=== PATIENT | female | born 1980 | race Caucasian/White ===

== ENCOUNTER 2017-05-17 12:27 | Inpatient (IN) | payer OTHER ==
[2017-05-17 12:57] VITALS: BMI 29.8
--- NOTE | 2017-05-17 13:47 | HP ---
COWS - Scale Resting Pulse: 1= [place] 81-100 Sweatin= Chills/Flushing Restless Observation: 1= Difficult to Sit Still Pupil Size: 0= Normal to Room Light Bone or Joint Aches: 2= Severe Diffuse Aches Runny Nose/ Eye Tearin= None GI Upset > 30mins: 2= Nausea/Diarrhea Tremor Observation: 2= Slight Tremor Visible Yawning Observation: 1= 1-2x During Session Anxiety or Irritability: 2=Irritable/Anxious Goose Flesh Skin: 3=Piloerection COWS Score: 15 CIWA Score - CIWA Score Nausea/Vomitin Muscle Tremors: 3 Anxiety: 4-Mod. Anxious/Guarded Agitation: 1-Slight > Activity Paroxysmal Sweats: 3 Orientation: 0-Oriented Tacttile Disturbances: 2-Mild Itch/Numbness/Burn Auditory Disturbances: 0-None Visual Disturbances: 0-None Headache: 4-Moderately Severe CIWA-Ar Total Score: 22 Admission ROS BHS - HPI Chief Complaint: "I do not want to live like this anymore." Pt. is here to Detox from Heroin and Xanax (non-prescribed). Allergies/Adverse Reactions: Allergies Allergy/AdvReac Type Severity Reaction Status Date / Time No Known Allergies Allergy Verified 05/17/17 13:30 History of Present Illness: Pt. is here to Detox from Heroin and Xanax (non-prescribed). Pt. has had 1 previous Detox admission at [facility] in [facility]. Pt. had 1 Detox Arms [facility] in 2010. Longest period of non-drug use: 1 - 1.5 years (2014 - 2015). Exam Limitations: No Limitations - Ebola screening Have you traveled outside of the country in the last 21 days: No Have you had contact with anyone from an Ebola affected area: No Have you been sick,other than usual withdrawal symptoms: No Do you have a fever: No - Review of Systems Constitutional: Chills, Diaphoresis, Fever, Loss of Appetite, Malaise, Night Sweats, Changes in sleep, Other (Gained approx. 25 lbs. over the last 3 months.) EENT: reports: Blurred Vision, Tearing Respiratory: reports: No Symptoms reported Cardiac: reports: Chest Tightness (Intermittent, brief in duration, X approx. 1 month, slightly to the left of sternum, "tight" quality. Patient denies radiation of pain, including down arm. PATIENT DENIES CURRENT CHEST PAIN.) GI: reports: Constipated, Nausea, Poor Appetite, Vomiting, Abdominal cramping : reports: No Symptoms Reported Musculoskeletal: reports: Back Pain, Joint Pain, Joint Stiffness Integumentary: reports: No Symptoms Reported Neuro: reports: Headache, Numbness (Occasional down left leg (history of Sciatica).), Tingling, Tremors Endocrine: reports: No Symptoms Reported Hematology: reports: Anemia (Iron-Deficiency type.), Easy Bruising Psychiatric: reports: Judgement Intact, Mood/Affect Appropiate, Orientated x3, Anxious, Depressed (Treatment, Medication in past, not current.) Other Systems: Reviewed and Negative Patient History - Patient Medical History Hx Anemia: Yes (Iron-deficiency type; no current treatment.) Hx Asthma: Yes (childhood asthma; later resolved.) Hx Chronic Obstructive Pulmonary Disease (COPD): No Hx Cancer: No Hx Cardiac Disorders: No Hx Congestive Heart Failure: No Hx Hypertension: No Hx Hypercholesterolemia: No Hx Pacemaker: No HX Cerebrovascular Accident: No Hx Seizures: No Hx Dementia: No Hx Diabetes: No Hx Gastrointestinal Disorders: No Hx Liver Disease: No Hx Genitourinary Disorders: No Hx Sexually Transmitted Disorders: No Hx Renal Disease (ESRD): No Hx Thyroid Disease: No Hx Human Immunodeficiency Virus (HIV): No (Last Tested: approx. 1 year ago: NEGATIVE.) Hx Hepatitis C: No (Last Tested: approx. 1 year ago: NEGATIVE.) Hx Depression: Yes (Treatment, medication in past; not current.) Hx Suicide Attempt: No (PATIENT DENIES CURRENT SI / HI.) Hx Bipolar Disorder: No Hx Schizophrenia: No Other Medical History: SCIATICA, Left Side, Diagnosed @ 2007. - Patient Surgical History Past Surgical History: Yes Hx Neurologic Surgery: No Hx Cataract Extraction: No Hx Cardiac Surgery: No Hx Lung Surgery: No Hx Breast Surgery: No Hx Breast Biopsy: No Hx Abdominal Surgery: No Hx Appendectomy: No Hx Cholecystectomy: No Hx Genitourinary Surgery: No Hx Section: Yes (x 3 (2002, 2004, 2006).) Hx Orthopedic Surgery: No Hx Hysterectomy: No Anesthesia Reaction: Yes (To Epidurals given during C-Sections (elevated BP).) - PPD History Previous Implant?: Yes Documented Results: Negative w/o proof Implanted On Prior [facility] Admission?: No Date: 01/13/12 PPD to be Administered?: Yes - Reproductive History Patient is a Female of Child Bearing Age (11 -55 yrs old): Yes Last Menstrual Period: 05/03/17 Patient : No - Smoking Cessation Smoking history: Current every day smoker Have you smoked in the past 12 months: Yes Aproximately how many cigarettes per day: 10 Cigars Per Day: 0 Hx Chewing Tobacco Use: No Initiated information on smoking cessation: Yes 'Breaking Loose' booklet given: 05/17/17 (GIVEN ON UNIT.) - Substance & Tx. History Hx Alcohol Use: No Hx Substance Use: Yes Substance Use Type: Heroin, Tranquilizers Hx Substance Use Treatment: Yes (Previous admissions at [facility] and at [facility].) - Substances Abused Heroin Route: Injection Frequency: Daily Amount used: 20 BAGS Age of first use: 31 Date of Last Use: 05/17/17 Alprazolam (Xanax) Route: Oral Frequency: Daily Amount used: 4 MG Age of first use: 36 Date of Last Use: 05/16/17 Marijuana/Hashish Route: Smoking Frequency: 1-2 times per week Amount used: 1 JOINT Age of first use: 14 Date of Last Use: 05/14/17 Family Disease History - Family Disease History Family Disease History: [place]: Grandparent (, Lung.), Mother (Multiple Drug use; Cervical Cancer, Full Hysterectomy.), Other: Father (, Heroin Overdose.), Mother Admission Physical Exam [facility] - Vital Signs Vital Signs: Vital Signs - 24 hr 05/17/17 12:52 Temperature 97.8 F Pulse Rate 81 Respiratory 20 Rate Blood Pressure 109/91 - Physical General Appearance: Yes: Nourished, Appropriately Dressed, Moderate Distress, Tremorous, Anxious HEENTM: Yes: Hearing grossly Normal, Normocephalic, Normal Voice, SANTINO, Pharynx Normal Respiratory: Yes: Chest Non-Tender, Lungs Clear, No Respiratory Distress, No Accessory Muscle Use Neck: Yes: No masses,lesions,Nodules, Supple, Trachea in good position Breast: Yes: Breast Exam Deferred Cardiology: Yes: Regular Rhythm, Regular Rate, S1, S2 Abdominal: Yes: Normal Bowel Sounds, Non Tender, Flat, Soft Genitourinary: Yes: Within Normal Limits Back: Yes: Decreased Range of Motion Musculoskeletal: Yes: Gait Steady, Back pain, Joint Stiffness Extremities: Yes: Tremors Neurological: Yes: Fully Oriented, Alert, Normal Mood/Affect, Normal Response Integumentary: Yes: Normal Color, Dry, Warm, Track Morris (Noted on Dorsum of Right hand and wrist. No signs of infection noted.) Lymphatic: Yes: Within Normal Limits - Diagnostic (1) Opioid dependence with withdrawal Current Visit: Yes Status: Acute (2) Sedative, hypnotic or anxiolytic dependence with withdrawal, uncomplicated Current Visit: Yes Status: Acute (3) Cannabis dependence, uncomplicated Current Visit: Yes Status: Acute (4) Nicotine dependence Current Visit: Yes Status: Chronic Qualifiers: Nicotine product type: cigarettes Substance use status: uncomplicated Qualified Code(s): F17.210 - Nicotine dependence, cigarettes, uncomplicated (5) Sciatica, left side Current Visit: Yes Status: Chronic (6) Anxiety and depression Current Visit: Yes Status: Chronic (7) History of anemia Current Visit: Yes Status: Chronic (8) History of 3 sections Current Visit: Yes Status: Chronic Cleared for Admission [facility] - Detox or Rehab [facility] Level of Care: Medically Managed Detox Regimen/Protocol: Methadone/Valium [facility] Breath Alcohol Content Breath Alcohol Content: 0 Urine Pregancy Test - Result Urine Test Results: Negative- NO Line Present Urine Drug Screen - Results Drug Screen Negative: No Urine Drug Screen Results: THC-Marijuana, JONO-Cocaine, OPI-Opiates, BZO- Benzodiazepines
[2017-05-17] MEDS ORDERED: diphenhydrAMINE HCL 50 MG CAPSULE PO PRN (14:25)
[2017-05-17] MEDS ORDERED: guaiFENesin/D-METHORPHAN HB 10 ML UNIT-DOSE CUPS PO PRN (14:25)
[2017-05-17] MEDS ORDERED: IBUPROFEN 400 MG TABLET (FP) PO PRN (14:25)
[2017-05-17] MEDS ORDERED: LOPERAMIDE HCL 2 MG CAPSULE PO PRN (14:25)
[2017-05-17] MEDS ORDERED: MAGNESIUM HYDROX 2400MG/30ML ORAL SUSPENSION 30 ML CUP PO PRN (14:25)
[2017-05-17] MEDS ORDERED: MAGNESIUM CITRATE 300 ML BOTTLE PO PRN (14:25)
[2017-05-17] MEDS ORDERED: NICOTINE POLACRILEX 2 MG GUM BC PRN (14:25)
[2017-05-17] MEDS ORDERED: P-EPHED 60MG/TRIPROLIDI 2.5MG TABLET PO PRN (14:25)
[2017-05-17] MEDS ORDERED: ACETAMINOPHEN 325 MG TABLET (FP) PO PRN (14:25)
[2017-05-17] MEDS ORDERED: MAG HYDROX/AL HYDROX/SIMETH 30 ML UNIT-DOSE CUP PO PRN (14:25)
[2017-05-17] MEDS ORDERED: MENTHOL/PHENOL 1 EACH UD MM PRN (14:25)
[2017-05-17] MEDS ORDERED: diazePAM 5 MG TABLET PO ONE (16:00)
[2017-05-17] MEDS ORDERED: METHADONE HCL 10 MG TABLET (FOR DETOX USE ONLY) PO ONE ×2 (16:00→23:00)
[2017-05-17] MEDS: NICOTINE 21 MG/24 HOURS TOPICAL PATCH TD SCH (18:11)
[2017-05-17] MEDS: CYCLOBENZAPRINE HCL 10 MG TABLET (FP) PO PRN (22:15)
[2017-05-17] MEDS: THIAMINE HCL 100 MG TABLET (FP) PO SCH (22:15)
[2017-05-17] MEDS: diazePAM 5 MG TABLET PO SCH (22:15)
[2017-05-18] MEDS: diazePAM 5 MG TABLET PO SCH ×3 (05:44→22:07)
[2017-05-18] MEDS: diazePAM 5 MG TABLET PO PRN (07:45)
--- NOTE | 2017-05-18 09:35 | PN ---
[facility] CIWA - CIWA Score Nausea/Vomitin Muscle Tremors: 3 Anxiety: 3 Agitation: 3 Paroxysmal Sweats: 1-Minimal Palms Moist Orientation: 0-Oriented Tacttile Disturbances: 1-Very Mild Itch/Numbness Auditory Disturbances: 1-Very Mild Visual Disturbances: 1-Very Mild Sensitivity Headache: 2-Mild CIWA-Ar Total Score: 18 BHS COWS - Scale Resting Pulse: 0= [place] 80 or Below Sweatin= Chills/Flushing Restless Observation: 3= Extraneous Movement Pupil Size: 1= Pupils >than Normal Bone or Joint Aches: 2= Severe Diffuse Aches Runny Nose/ Eye Tearin= Runny Nose/Eyes GI Upset > 30mins: 3= Vomiting/Diarrhea Tremor Observation of Outstretched Hands: 2= Slight Tremor Visible Yawning Observation: 1= 1-2x During Session Anxiety or Irritability: 2=Irritable/Anxious Goose Flesh Skin: 0=Smooth Skin COWS Score: 17 S Progress Note (SOAP) Subjective: ALERT,IRRITABLE,ANXIOUS,INTERRUPTED SLEEP,PAIN IN THE BODY AND BACK,TREMOR Objective: 05/18/17 09:33 Vital Signs Temperature 97.9 F 05/18/17 06:31 Pulse Rate 75 05/18/17 06:31 Respiratory Rate 18 05/18/17 06:31 Blood Pressure 111/71 05/18/17 06:31 O2 Sat by Pulse Oximetry (%) EKG NSR,NORMAL ECG LABS PENDING Assessment: 05/18/17 09:34 WITHDRAWAL SYMPTOM Plan: CONTINUE DETOX
[2017-05-18 09:53] LABS: MCH 22.1 pg (25.7-33.7); MCHC 32.1 g/dl (32.0-36.0); MEAN CELL VOLUME 68.7 fl (80-96); MEAN PLT VOLUME 9.3 fl (7.5-11.1); PLATELET COUNT 359 K/MM3 (134-434); WHITE BLOOD COUNT 7.2 K/mm3 (4.0-10.0)
[2017-05-18] MEDS ORDERED: METHADONE HCL 10 MG TABLET (FOR DETOX USE ONLY) PO SCH (10:00)
[2017-05-18] MEDS: cloNIDine HCL 0.1 MG TABLET PO SCH ×2 (10:16→22:05)
[2017-05-18] MEDS: PRENATAL VITAMINS W/ FOLIC ACID TABLET (FP) PO SCH (10:16)
[2017-05-18] MEDS: NICOTINE 21 MG/24 HOURS TOPICAL PATCH TD SCH (10:17)
[2017-05-18 11:02] LABS: ALBUMIN 3.9 g/dl (3.4-5.0); ALK PHOS 75 U/L (45-117); ANION GAP 9 (8-16); BILIRUBIN,TOTAL 0.6 mg/dL (0.2-1.0); CALCIUM 9.5 mg/dL (8.5-10.1); CO2 26 mmol/L (21-32); CREATININE 0.6 mg/dL (0.55-1.02); GLUCOSE,RANDOM 93 mg/dL (74-106); SGOT/AST 25 U/L (15-37); SGPT/ALT 41 U/L (12-78); TOT PROT 8.2 g/dl (6.4-8.2)
[2017-05-18] MEDS: hydrOXYzine PAMOATE 50 MG CAPSULE (FP) PO PRN ×3 (11:21→22:05)
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
[2017-05-18 17:42] LABS: URINE APPEARANCE CLEAR; URINE BILIRUBIN NEGATIVE (NEGATIVE); URINE BLOOD NEGATIVE (NEGATIVE); URINE COLOR YELLOW; URINE GLUCOSE (UA) NEGATIVE (NEGATIVE); URINE KETONE NEGATIVE (NEGATIVE); URINE LEUK ESTERASE NEGATIVE (NEGATIVE); URINE NITRITE NEGATIVE (NEGATIVE); URINE PROTEIN NEGATIVE (NEGATIVE); URINE UROBILINOGEN NEGATIVE mg/dL (0.2-1.0)
[2017-05-18] MEDS: CYCLOBENZAPRINE HCL 10 MG TABLET (FP) PO PRN (22:05)
[2017-05-18] MEDS: THIAMINE HCL 100 MG TABLET (FP) PO SCH (22:05)
[2017-05-18] MEDS: QUEtiapine FUMARATE 50 MG TABLET PO SCH (22:05)
[2017-05-19] MEDS: diazePAM 5 MG TABLET PO PRN ×2 (05:18→20:07)
--- NOTE | 2017-05-19 09:31 | EKG ---
Test Reason : Blood Pressure : / mmHG Vent. Rate : 081 BPM Atrial Rate : 081 BPM P-R Int : 144 ms QRS Dur : 084 ms QT Int : 402 ms P-R-T Axes : 025 019 012 degrees QTc Int : 466 ms NORMAL SINUS RHYTHM NORMAL ECG NO PREVIOUS ECGS AVAILABLE Confirmed by MD CHANDA, EVARISTO ([id number]) on 05/19/2017 9:31:42 AM Referred By: Confirmed By:EVARISTO ARMAS MD
[2017-05-19] MEDS: cloNIDine HCL 0.1 MG TABLET PO SCH ×2 (10:20→22:30)
[2017-05-19] MEDS: METHADONE HCL 5 MG TABLET (FOR DETOX USE ONLY) PO SCH (10:20)
[2017-05-19] MEDS: PRENATAL VITAMINS W/ FOLIC ACID TABLET (FP) PO SCH (10:20)
[2017-05-19] MEDS: diazePAM 5 MG TABLET PO SCH ×2 (10:20→22:30)
[2017-05-19] MEDS: NICOTINE 21 MG/24 HOURS TOPICAL PATCH TD SCH (10:20)
--- NOTE | 2017-05-19 10:56 | PN ---
S CIWA - CIWA Score Nausea/Vomitin Muscle Tremors: 3 Anxiety: 3 Agitation: 3 Paroxysmal Sweats: 2 Orientation: 0-Oriented Tacttile Disturbances: 1-Very Mild Itch/Numbness Auditory Disturbances: 0-None Visual Disturbances: 0-None Headache: 2-Mild CIWA-Ar Total Score: 17 BHS COWS - Scale Resting Pulse: 0= [place] 80 or Below Sweatin= Chills/Flushing Restless Observation: 1= Difficult to Sit Still Pupil Size: 0= Normal to Room Light Bone or Joint Aches: 2= Severe Diffuse Aches Runny Nose/ Eye Tearin= Runny Nose/Eyes GI Upset > 30mins: 2= Nausea/Diarrhea Tremor Observation of Outstretched Hands: 2= Slight Tremor Visible Yawning Observation: 0= None Anxiety or Irritability: 2=Irritable/Anxious Goose Flesh Skin: 0=Smooth Skin COWS Score: 12 BHS Progress Note (SOAP) Subjective: abdominal pain,N/V, shakes and sweats Objective: 05/19/17 10:54 Vital Signs - 8 hr 05/19/17 05/19/17 05/19/17 03:30 06:30 10:00 Temperature 97.7 F 98.2 F Pulse Rate 59 L 86 Respiratory 18 16 18 Rate Blood Pressure 105/58 107/58 Laboratory Last Values WBC 7.2 K/mm3 (4.0-10.0) 05/18/17 06:00 RBC 5.12 M/mm3 (3.60-5.2) 05/18/17 06:00 Hgb 11.3 GM/dL (10.7-15.3) 05/18/17 06:00 Hct 35.2 % (32.4-45.2) 05/18/17 06:00 MCV 68.7 fl (80-96) L 05/18/17 06:00 MCH 22.1 pg (25.7-33.7) L 05/18/17 06:00 MCHC 32.1 g/dl (32.0-36.0) 05/18/17 06:00 RDW 15.0 % (11.6-15.6) D 05/18/17 06:00 Plt Count 359 K/MM3 (134-434) D 05/18/17 06:00 MPV 9.3 fl (7.5-11.1) D 05/18/17 06:00 Sodium 138 mmol/L (136-145) 05/18/17 06:00 Potassium 4.0 mmol/L (3.5-5.1) 05/18/17 06:00 Chloride 103 mmol/L (98-107) 05/18/17 06:00 Carbon Dioxide 26 mmol/L (21-32) 05/18/17 06:00 Anion Gap 9 (8-16) 05/18/17 06:00 BUN 12 mg/dL (7-18) D 05/18/17 06:00 Creatinine 0.6 mg/dL (0.55-1.02) 05/18/17 06:00 Creat Clearance w eGFR > 60 (>60) 05/18/17 06:00 Random Glucose 93 mg/dL (74-106) 05/18/17 06:00 Calcium 9.5 mg/dL (8.5-10.1) 05/18/17 06:00 Total Bilirubin 0.6 mg/dL (0.2-1.0) D 05/18/17 06:00 AST 25 U/L (15-37) D 05/18/17 06:00 ALT 41 U/L (12-78) D 05/18/17 06:00 Alkaline Phosphatase 75 U/L (45-117) D 05/18/17 06:00 Total Protein 8.2 g/dl (6.4-8.2) 05/18/17 06:00 Albumin 3.9 g/dl (3.4-5.0) 05/18/17 06:00 Urine Color Yellow 05/17/17 17:00 Urine Appearance Clear 05/17/17 17:00 Urine pH 7.0 (5.0-8.0) D 05/17/17 17:00 Ur Specific [place] 1.020 (1.005-1.025) 05/17/17 17:00 Urine Protein Negative (NEGATIVE) 05/17/17 17:00 Urine Glucose (UA) Negative (NEGATIVE) 05/17/17 17:00 Urine Ketones Negative (NEGATIVE) 05/17/17 17:00 Urine Blood Negative (NEGATIVE) 05/17/17 17:00 Urine Nitrite Negative (NEGATIVE) 05/17/17 17:00 Urine Bilirubin Negative (NEGATIVE) 05/17/17 17:00 Urine Urobilinogen Negative mg/dL (0.2-1.0) 05/17/17 17:00 Ur Leukocyte Esterase Negative (NEGATIVE) 05/17/17 17:00 RPR Titer Nonreactive (NONREACTIVE) 05/18/17 06:00 labs noted Assessment: 05/19/17 10:55 withdrawal sx Plan: continue detox
[2017-05-19] MEDS: hydrOXYzine PAMOATE 50 MG CAPSULE (FP) PO PRN ×2 (11:54→22:33)
[2017-05-19] MEDS: QUEtiapine FUMARATE 50 MG TABLET PO SCH (22:30)
[2017-05-19] MEDS: THIAMINE HCL 100 MG TABLET (FP) PO SCH (22:30)
[2017-05-20] MEDS: NICOTINE 21 MG/24 HOURS TOPICAL PATCH TD SCH (10:16)
[2017-05-20] MEDS: METHADONE HCL 5 MG TABLET (FOR DETOX USE ONLY) PO SCH (10:16)
[2017-05-20] MEDS: cloNIDine HCL 0.1 MG TABLET PO SCH ×2 (10:16→22:14)
[2017-05-20] MEDS: PRENATAL VITAMINS W/ FOLIC ACID TABLET (FP) PO SCH (10:16)
[2017-05-20] MEDS: diazePAM 5 MG TABLET PO SCH ×2 (10:16→22:14)
[2017-05-20] MEDS: hydrOXYzine PAMOATE 50 MG CAPSULE (FP) PO PRN (11:12)
[2017-05-20] MEDS ORDERED: CYCLOBENZAPRINE HCL 10 MG TABLET (FP) PO ONE (11:30)
[2017-05-20] MEDS: CYCLOBENZAPRINE HCL 10 MG TABLET (FP) PO SCH ×2 (14:59→22:14)
--- NOTE | 2017-05-20 17:04 | PN ---
BHS Progress Note (SOAP) Subjective: Sweating,interrupted sleep,restless Objective: 05/20/17 17:03 Vital Signs - 8 hr 05/20/17 05/20/17 10:00 14:31 Temperature 98.1 F 97.9 F Pulse Rate 81 87 Respiratory 16 16 Rate Blood Pressure 131/80 99/63 Laboratory Last Values WBC 7.2 K/mm3 (4.0-10.0) 05/18/17 06:00 RBC 5.12 M/mm3 (3.60-5.2) 05/18/17 06:00 Hgb 11.3 GM/dL (10.7-15.3) 05/18/17 06:00 Hct 35.2 % (32.4-45.2) 05/18/17 06:00 MCV 68.7 fl (80-96) L 05/18/17 06:00 MCH 22.1 pg (25.7-33.7) L 05/18/17 06:00 MCHC 32.1 g/dl (32.0-36.0) 05/18/17 06:00 RDW 15.0 % (11.6-15.6) D 05/18/17 06:00 Plt Count 359 K/MM3 (134-434) D 05/18/17 06:00 MPV 9.3 fl (7.5-11.1) D 05/18/17 06:00 Sodium 138 mmol/L (136-145) 05/18/17 06:00 Potassium 4.0 mmol/L (3.5-5.1) 05/18/17 06:00 Chloride 103 mmol/L (98-107) 05/18/17 06:00 Carbon Dioxide 26 mmol/L (21-32) 05/18/17 06:00 Anion Gap 9 (8-16) 05/18/17 06:00 BUN 12 mg/dL (7-18) D 05/18/17 06:00 Creatinine 0.6 mg/dL (0.55-1.02) 05/18/17 06:00 Creat Clearance w eGFR > 60 (>60) 05/18/17 06:00 Random Glucose 93 mg/dL (74-106) 05/18/17 06:00 Calcium 9.5 mg/dL (8.5-10.1) 05/18/17 06:00 Total Bilirubin 0.6 mg/dL (0.2-1.0) D 05/18/17 06:00 AST 25 U/L (15-37) D 05/18/17 06:00 ALT 41 U/L (12-78) D 05/18/17 06:00 Alkaline Phosphatase 75 U/L (45-117) D 05/18/17 06:00 Total Protein 8.2 g/dl (6.4-8.2) 05/18/17 06:00 Albumin 3.9 g/dl (3.4-5.0) 05/18/17 06:00 Urine Color Yellow 05/17/17 17:00 Urine Appearance Clear 05/17/17 17:00 Urine pH 7.0 (5.0-8.0) D 05/17/17 17:00 Ur Specific [place] 1.020 (1.005-1.025) 05/17/17 17:00 Urine Protein Negative (NEGATIVE) 05/17/17 17:00 Urine Glucose (UA) Negative (NEGATIVE) 05/17/17 17:00 Urine Ketones Negative (NEGATIVE) 05/17/17 17:00 Urine Blood Negative (NEGATIVE) 05/17/17 17:00 Urine Nitrite Negative (NEGATIVE) 05/17/17 17:00 Urine Bilirubin Negative (NEGATIVE) 05/17/17 17:00 Urine Urobilinogen Negative mg/dL (0.2-1.0) 05/17/17 17:00 Ur Leukocyte Esterase Negative (NEGATIVE) 05/17/17 17:00 RPR Titer Nonreactive (NONREACTIVE) 05/18/17 06:00 labs noted Assessment: 05/20/17 17:04 Withdrawal sx. Plan: Continue detox
[2017-05-20] MEDS: THIAMINE HCL 100 MG TABLET (FP) PO SCH (22:14)
[2017-05-20] MEDS: QUEtiapine FUMARATE 50 MG TABLET PO SCH (22:14)
[2017-05-21] MEDS: CYCLOBENZAPRINE HCL 10 MG TABLET (FP) PO SCH ×3 (05:10→22:13)
[2017-05-21] MEDS ORDERED: METHADONE HCL 10 MG TABLET (FOR DETOX USE ONLY) PO SCH (10:00)
[2017-05-21] MEDS ORDERED: diazePAM 5 MG TABLET PO SCH (10:00)
[2017-05-21] MEDS: cloNIDine HCL 0.1 MG TABLET PO SCH ×2 (10:24→22:15)
[2017-05-21] MEDS: PRENATAL VITAMINS W/ FOLIC ACID TABLET (FP) PO SCH (10:24)
[2017-05-21] MEDS: NICOTINE 21 MG/24 HOURS TOPICAL PATCH TD SCH (10:25)
--- NOTE | 2017-05-21 10:51 | PN ---
BHS Progress Note (SOAP) Subjective: Sweating,interrupted sleep,restless. Objective: 05/21/17 10:48 Vital Signs - 8 hr 05/21/17 05/21/17 05/21/17 03:30 06:00 09:41 Temperature 97.5 F L 98.1 F Pulse Rate 68 85 Respiratory 18 16 16 Rate Blood Pressure 99/61 116/68 Assessment: 05/21/17 10:50 Withdrawal sx. Plan: Continue detox
[2017-05-21] MEDS: hydrOXYzine PAMOATE 50 MG CAPSULE (FP) PO PRN (13:57)
[2017-05-21] MEDS: QUEtiapine FUMARATE 50 MG TABLET PO SCH (22:13)
[2017-05-21] MEDS: THIAMINE HCL 100 MG TABLET (FP) PO SCH (22:13)
[2017-05-22] MEDS: CYCLOBENZAPRINE HCL 10 MG TABLET (FP) PO SCH (05:14)
[2017-05-22] MEDS: hydrOXYzine PAMOATE 50 MG CAPSULE (FP) PO PRN ×2 (05:15→09:19)
[2017-05-22] MEDS ORDERED: METHADONE HCL 5 MG TABLET (FOR DETOX USE ONLY) PO SCH (06:00)
[2017-05-22 06:36] VITALS: TEMP 97.7
--- NOTE | 2017-05-22 08:45 | DS ---
[facility] Detox Discharge Summary Admission Date: 05/17/17 Discharge Date: 05/22/17 - History Present History: Cannabis Dependence, Cocaine Dependence, Opioid Dependence, Sedative Dependence Pertinent Past History: nicotine dependence, anemia, anxiety, insomnia, depression, sciatica - Physical Exam Results Vital Signs: Vital Signs Temperature 97.7 F 05/22/17 06:34 Pulse Rate 67 05/22/17 06:34 Respiratory Rate 18 05/22/17 06:34 Blood Pressure 105/70 05/22/17 06:34 O2 Sat by Pulse Oximetry (%) Laboratory Tests 05/17/17 05/18/17 05/18/17 17:00 06:00 06:00 WBC 7.2 RBC 5.12 Hgb 11.3 Hct 35.2 MCV 68.7 L MCH 22.1 L MCHC 32.1 RDW 15.0 D Plt Count 359 D MPV 9.3 D Sodium 138 Potassium 4.0 Chloride 103 Carbon Dioxide 26 Anion Gap 9 BUN 12 D Creatinine 0.6 Creat Clearance w eGFR > 60 Random Glucose 93 Calcium 9.5 Total Bilirubin 0.6 D AST 25 D ALT 41 D Alkaline Phosphatase 75 D Total Protein 8.2 Albumin 3.9 Urine Color Yellow Urine Appearance Clear Urine pH 7.0 D Ur Specific [place] 1.020 Urine Protein Negative Urine Glucose (UA) Negative Urine Ketones Negative Urine Blood Negative Urine Nitrite Negative Urine Bilirubin Negative Urine Urobilinogen Negative Ur Leukocyte Esterase Negative RPR Titer 05/18/17 06:00 WBC RBC Hgb Hct MCV MCH MCHC RDW Plt Count MPV Sodium Potassium Chloride Carbon Dioxide Anion Gap BUN Creatinine Creat Clearance w eGFR Random Glucose Calcium Total Bilirubin AST ALT Alkaline Phosphatase Total Protein Albumin Urine Color Urine Appearance Urine pH Ur Specific [place] Urine Protein Urine Glucose (UA) Urine Ketones Urine Blood Urine Nitrite Urine Bilirubin Urine Urobilinogen Ur Leukocyte Esterase RPR Titer Nonreactive Pertinent Admission Physical Exam Findings: withdrawal sx - Treatment Hospital Course: Detox Protocol Followed, Detoxed Safely, Responded well, Discharged Condition Good, Rehab Referral Accepted - Medication Discharge Medications: Ambulatory Orders NK [No Known Home Medication] 05/17/17 - Diagnosis (1) Cannabis dependence, uncomplicated Current Visit: Yes Status: Chronic (2) Cocaine dependence Current Visit: Yes Status: Chronic Qualifiers: Substance use status: uncomplicated Qualified Code(s): F14.20 - Cocaine dependence, uncomplicated (3) Nicotine dependence Current Visit: Yes Status: Acute Qualifiers: Nicotine product type: cigarettes Substance use status: uncomplicated Qualified Code(s): F17.210 - Nicotine dependence, cigarettes, uncomplicated (4) Opioid dependence with withdrawal Current Visit: Yes Status: Chronic (5) Sedative, hypnotic or anxiolytic dependence with withdrawal, uncomplicated Current Visit: Yes Status: Chronic (6) Substance induced mood disorder Current Visit: Yes Status: Acute (7) History of 3 sections Current Visit: Yes Status: Inactive (8) Sciatica, left side Current Visit: Yes Status: Chronic - AMA Did Patient Leave Against Medical Advice: No
[2017-05-22] MEDS: cloNIDine HCL 0.1 MG TABLET PO SCH (09:19)
[2017-05-22] MEDS: PRENATAL VITAMINS W/ FOLIC ACID TABLET (FP) PO SCH (09:19)
[2017-05-22] MEDS: NICOTINE 21 MG/24 HOURS TOPICAL PATCH TD SCH (09:21)
[2017-05-22 10:24] VITALS: BP 134/65; PULSE 91
== END 2017-05-22 09:52 | disposition home or self-care (01) | DRG 773 ==
LOC: YASAS 12:27 → Y6N 15:38
PROVIDERS: ADMIT Internal Medicine Addiction Medicine; ATTEND Internal Medicine Addiction Medicine
PROC: HZ2ZZZZ Detoxification Services for Substance Abuse Treatment (ICD-10-PCS; principal; 2017-05-22)
DX: F11.23 Opioid dependence with withdrawal (principal); F13.230 Sedative, hypnotic or anxiolytic dependence with withdrawal, uncomplicated; F14.20 Cocaine dependence, uncomplicated; F12.20 Cannabis dependence, uncomplicated; F17.210 Nicotine dependence, cigarettes, uncomplicated; F19.24 Other psychoactive substance dependence with psychoactive substance-induced mood disorder; F41.8 Other specified anxiety disorders; M54.32 Sciatica, left side; G47.00 Insomnia, unspecified; Z86.2 Personal history of diseases of the blood and blood-forming organs and certain disorders involving the immune mechanism; Z87.09 Personal history of other diseases of the respiratory system
CPT/HCPCS: 36415; 80053; 81003; 85027; 86593; 93005; 93010